=== PATIENT | male | born 1975 | race Caucasian/White ===

== ENCOUNTER 2017-12-17 20:11 | Emergency (ER) | payer SELFPAY ==
[~2017-12-17] VITALS: Ht 180.3 cm; Wt 108.9 kg
[2017-12-17 20:11] VITALS: BP_SYST 140
--- NOTE | 2017-12-17 20:11 | NUR ---
Patient to ER bed 8 to gown for evaluation. Side rails up. Report given to Diya ROBERTSON.
--- NOTE | 2017-12-17 20:15 | NUR ---
Pt brought by self, A&Ox4, ambulatory , pt presents to ER with lower back pain after heavy lifting at work, skin pink and warm, cap refill <3, VSS, denies urinary symptoms or other injuries.
--- NOTE | 2017-12-17 20:30 | NUR ---
Dr Sorto at bedside examining patient
[2017-12-17 20:59] VITALS: BP_SYST 142
--- NOTE | 2017-12-17 20:59 | NUR ---
Patient given written and verbal discharge instructions and verbalizes understanding. ER MD discussed with patient the results and treatment provided. Patient in stable condition. ID arm band removed. Rx of Desmet, Flexeril and Ibuprofen given. Patient educated on pain management and to follow up with PMD. Pain Scale 3/10 tolerable for pt Opportunity for questions provided and answered.
== END 2017-12-17 20:59 | disposition home or self-care (01) ==
LOC: SED 20:11
DX: M54.5 Low back pain (principal)
CPT/HCPCS: 99283